=== PATIENT | male | born 1950 | race African-American/Black ===

== ENCOUNTER 2018-05-08 23:38 | Observation (INO) | END 2018-05-11 13:05 | disposition left against medical advice (07) ==

== ENCOUNTER 2019-04-06 18:44 | Inpatient (IN) | payer MEDICARE, OTHER ==
[~2019-04-06] VITALS: Ht 193 cm; Wt 79.8 kg
[~2019-04-06 18:44] MED LIST: ASPI-831 PO; ATOR40TA68 PO; CARV25TA79 PO; DOCU250C58 PO; FURO-109 PO; HYDR-3672 PO; ISOS120T PO; SITA100T11 PO
--- NOTE | 2019-04-06 18:49 | ERD ---
ER Documentation Chief Complaint Chief Complaint ALOC HPI The patient is a 68-year-old male, presenting to the ER because of altered level consciousness for unknown duration. He came from [facility], was treated immediately with Narcan intranasally unknown dosage and he responded spontaneously. He yawning but able to answer question appropriately, denies suicidal/homicidal ideation, denies headache, neck pain, chest pain, dyspnea, abdominal pain, vomiting, dysuria, diarrhea. He does take methadone for history of heroin abuse, smokes marijuana Past medical history: Dyslipidemia, diabetes mellitus, hypertension, epilepsy, history of TIA, COPD, CAD, history of CHF, leukemia on oral chemotherapy, cardiomyopathy Past surgical history: Mitral valve prolapse, ventral herniorrhaphy ROS All systems reviewed and are negative except as per history of present illness. Medications Home Meds Reported Medications Atorvastatin* (Atorvastatin*) 40 Mg Tablet, 40 MG PO QHS, #30 TAB 05/08/18 Sitagliptin* (Januvia*) 100 Mg Tablet, 100 MG PO DAILY 01/18/14 Docusate Sodium* (Colace*) 250 Mg Capsule, 250 MG PO DAILY 01/18/14 Furosemide* (Lasix*) 40 Mg Tablet, 40 MG PO DAILY 01/18/14 Hydralazine Hcl* (Hydralazine Hcl*) 50 Mg Tab, 50 MG PO BID 01/18/14 Isosorbide Mononitrate* (Imdur*) 120 Mg Tab.sr.24h, 120 MG PO DAILY 01/18/14 Carvedilol* (Carvedilol*) 25 Mg Tablet, 25 MG PO BID 01/18/14 Aspirin (Aspirin) 81 Mg Chew, 81 MG PO DAILY 01/18/14 Allergies Allergies: Coded Allergies: benazepril (Unverified Allergy, Unknown, 05/08/18) PMhx/Soc History of Surgery: Yes (hernia repair) Anesthesia Reaction: No Hx Neurological Disorder: Yes (seizure, TIA) Hx Respiratory Disorders: Yes (COPD ) Hx Cardiac Disorders: Yes (PA x2 2005, CHF, CAD) Hx Psychiatric Problems: Yes (anxiety) Hx Miscellaneous Medical Probl: Yes (CAD, PA, COPD, CHF, TIA , DM , LEUKEMIA ON ORAL CHEMO.) Hx Alcohol Use: Yes Hx Substance Use: Yes (marijuana) Hx Tobacco Use: Yes Physical Exam Vitals Vital Signs Date Temp Pulse Resp B/P (MAP) Pulse Ox O2 O2 Flow FiO2 Time Delivery Rate 04/06/19 100 20 102/82 100 Room Air 20:51 (89) 04/06/19 98.6 99 18 100 18:46 Physical Exam Const: No acute distress. Head: Atraumatic. Eyes: Normal Conjunctiva. ENT: Normal External Ears, Nose and Mouth. Neck: Full range of motion. No meningismus. Resp: Clear to auscultation bilaterally. Cardio: Regular rate tachycardic Abd: Soft, non distended, normal bowel sounds, non tender. Skin: No petechiae or rashes. Back: No midline or flank tenderness. Ext: No cyanosis, or edema. Neur: Awake and alert. No focal deficit Psych: Normal Mood and Affect. Result Diagram: 04/06/19191104/06/191911 Results 24 hrs Laboratory Tests Test 04/06/19 19:12 04/06/19 21:20 04/06/19 21:30 White Blood Count 3.3 10^3/ul Red Blood Count 3.29 10^6/ul Hemoglobin 10.0 g/dl Hematocrit 33.7 % Mean Corpuscular Volume 102.4 fl Mean Corpuscular Hemoglobin 30.4 pg Mean Corpuscular 29.7 g/dl Hemoglobin Concent Red Cell Distribution Width 16.6 % Platelet Count 98 10^3/UL Mean Platelet Volume 11.3 fl Immature Granulocytes % 0.600 % Neutrophils % % Segmented Neutrophils % (Manual) 53 % Band Neutrophils % (Manual) 1 % Lymphocytes % % Lymphocytes % (Manual) 28 % Monocytes % % Monocytes % (Manual) 13 % Eosinophils % % Eosinophils % (Manual) 5 % Basophils % % Nucleated Red Blood Cells % 4 % Immature Granulocytes # 0.020 10^3/ul Neutrophils # 10^3/ul Neutrophils # (Manual) 1.7 10^3/ul Band Neutrophils # 0.0 10^3/ul Lymphocytes (Manual) 0.9 10^3/ul Lymphocytes # 10^3/ul Monocytes # 10^3/ul Monocytes # (Manual) 0.4 10^3/ul Eosinophils # 10^3/ul Basophils # 10^3/ul Nucleated Red Blood Cells # 10^3/ul Platelet Estimate DECREASED Polychromasia 2+ Poikilocytosis 1+ Anisocytosis 1+ Ovalocytes 1+ Sodium Level 141 mmol/L Potassium Level 4.9 mmol/L Chloride Level 103 mmol/L Carbon Dioxide Level 28 mmol/L Anion Gap 10 Blood Urea Nitrogen 35 mg/dl Creatinine 2.14 mg/dl Est Glomerular Filtrat 37 mL/min Rate mL/min Glucose Level 105 mg/dl Calcium Level 9.3 mg/dl Total Bilirubin 0.4 mg/dl Direct Bilirubin 0.00 mg/dl Indirect Bilirubin 0.4 mg/dl Aspartate Amino Transf (AST/SGOT) 25 IU/L Alanine 17 IU/L Aminotransferase (ALT/SGPT) Alkaline Phosphatase 74 IU/L Troponin I 0.020 ng/ml Total Protein 8.2 g/dl Albumin 4.0 g/dl Globulin 4.20 g/dl Albumin/Globulin Ratio 0.95 Salicylates Level < 1.0 mg/dl Acetaminophen Level < 10.0 ug/ml Ethyl Alcohol Level < 10.0 mg/dl Urine Color YELLOW Urine Clarity CLEAR Urine pH 6.0 Urine Specific [place] 1.013 Urine Ketones NEGATIVE mg/dL Urine Nitrite NEGATIVE mg/dL Urine Bilirubin NEGATIVE mg/dL Urine Urobilinogen 1+ mg/dL Urine Leukocyte Esterase 1+ Kezia/ul Urine Microscopic RBC 2 /HPF Urine Microscopic WBC 13 /HPF Urine Hemoglobin NEGATIVE mg/dL Urine Glucose NEGATIVE mg/dL Urine Total Protein NEGATIVE mg/dl Urine Opiates Screen Positive Urine Barbiturates Negative Urine Amphetamines Screen Negative Urine Benzodiazepines Screen Negative Urine Cocaine Screen Positive Urine Cannabinoids Negative Free Thyroxine 1.20 ng/dl Current Medications Medications Dose Sig/Alfredo Start Time Status Last (Trade) Ordered Route PRN Stop Time Admin Dose Reason Admin Sodium 500 ml @ Q1H ONCE 04/06/19 DC 04/06/19 Chloride 500 mls/hr IV 19:30 04/06/19 19:53 20:29 Procedures/MDM [place] [id number] Radiology Main Line: [phone] DIAGNOSTIC IMAGING REPORT Patient: WARREN OH : 1950 Age: 68 Sex: M MR #: [id number] DOS: 04/06/191909 Ordering MD: TYE CRAIG MD Location: E/R Room/Bed: PROCEDURE: XR Chest 1 view. CLINICAL INDICATION: Shortness of breath. Altered level of consciousness. TECHNIQUE: Single view of the chest was obtained. COMPARISON: CR CHEST 01/18/2014 FINDINGS: Support lines and tubes: None. Mediastinum: Enlarged heart. Calcified atherosclerosis in the aorta. Lungs: Central pulmonary vascular congestion and interstitial prominence in both lungs. Atelectasis versus mild infiltrates in the perihilar lower lobes. No pneumothorax. Osseous structures: Intact. Osteopenia. Degenerative changes in the shoulders. Other: None. IMPRESSION: Cardiomegaly with calcified atherosclerosis in the aorta. Mild central pulmonary vascular congestion and interstitial prominence in both lungs. Atelectasis versus mild infiltrates in the perihilar lower lobes. RPTAT: AA .Chris Bhagat MD, MD Date Time Electronically viewed and signed by .Chris Bhagat MD, on 04/06/2019 20:04 .P/ CC: TYE CRAIG MD [id number] EK hrs. read by emergency physician Rate/Rhythm: Atrial flutter at 116 beats/min QRS, ST, T-waves: No ST elevation, no T inversion, variable AVB, inferolateral ST/T abn Impression: Abnormal EKG EK hrs. read by emergency physician Rate/Rhythm: Atrial flutter at 102 beats/min QRS, ST, T-waves: No ST elevation, no T inversion, variable AVB, LAD Impression: Abnormal EKG MEDICAL MAKING DECISION: The patient is a 68-year-old male, presenting with acute accidental overdose, acute new onset atrial flutter, acute cystitis, cocaine abuse, pancytopenia. He was treated with 500 mm normal saline upon arrival to the ER for clinical dehydration, urine culture was requested, he was treated with Rocephin 1 g IV for acute cystitis The differential diagnoses considered include but are not limited to substance abuse, metabolic encephalopathy, cystitis, pyelonephritis, electrolyte imbalance, arrhythmia Departure Diagnosis: Primary Impression: Opioid overdose Additional Impressions: New onset atrial flutter UTI (urinary tract infection) Cocaine abuse Pancytopenia Condition: Stable Comments I discussed the findings with the patient. I discussed the patient with Dr Ulises carpio , who was made aware of the lab, the treatment, the patient condition. The patient is admitted to [facility] Disclaimer: Inadvertent spelling and grammatical errors are likely due to EHR/dictation software use and do not reflect on the overall quality of patient care. Also, please note that the electronic time recorded on this note does not necessarily reflect the actual time of the patient encounter. TYE CRAIG MD Apr 06, 2019 18:49
[2019-04-06] MEDS ORDERED: SOD CHLORIDE 0.9% 500 ML IV ONE (19:30)
[2019-04-06] MEDS ORDERED: CEFTRIAXONE 1 GM/50 ML (PMX) 50 ML IVPB ONE (23:00)
[2019-04-06] MEDS ORDERED: ACETAMINOPHEN 325 MG TAB PO PRN (23:30)
[2019-04-06] MEDS ORDERED: MAGNESIUM HYDROXIDE 30ML CUP PO PRN (23:30)
[2019-04-06] MEDS ORDERED: hydrALAzine 20 MG INJ IV PRN (23:30)
[2019-04-06] MEDS ORDERED: ALBUTEROL/IPRATROPIUM (NEB) 3 ML AMP HHN PRN (23:30)
[2019-04-06] MEDS ORDERED: NITROGLYCERIN (SL) 0.4 MG TAB SL PRN (23:30)
[2019-04-06] MEDS ORDERED: DOCUSATE SODIUM 100 MG CAP PO PRN (23:30)
[2019-04-06] MEDS ORDERED: morphine 2 MG INJ IV PRN (23:30)
[2019-04-06] MEDS ORDERED: NACL 0.9% 3 ML SYG IV SCH (23:30)
[2019-04-06] MEDS ORDERED: LORAZEPAM 2 MG INJ IV PRN (23:30)
[2019-04-06] MEDS ORDERED: ONDANSETRON 4 MG INJ IV PRN (23:30)
[2019-04-06] MEDS ORDERED: HYDROCODONE/APAP (5/325) TAB PO PRN (23:30)
[2019-04-07] VITALS (14 sets, daily range): BP systolic 93–155; BP diastolic 62–72; PULSE 57–74; RESP 18–20; Ht 193 cm; Wt 79.8 kg
[2019-04-07] MEDS ORDERED: DEXTROSE 50% 50 ML SYRINGE IV PRN ×2 (01:00)
[2019-04-07] MEDS ORDERED: GLUCOSE GEL 15 GRAM TUBE PO PRN ×2 (01:00)
[2019-04-07] MEDS ORDERED: GLUCOSE GEL 15 GRAM TUBE BUCCAL PRN (01:00)
[2019-04-07] MEDS: INSULIN ASPART [NOVOLOG] 3 ML PEN SC SCH ×6 (01:00→21:00)
[2019-04-07] MEDS ORDERED: GLUCAGON 1 MG INJ IM PRN (01:00)
[2019-04-07] MEDS ORDERED: ACCU-CHEK XX SCH (02:00)
[2019-04-07] MEDS ORDERED: PANT40TA4 PO (02:54)
[2019-04-07] MEDS ORDERED: HYDR-3671 PO (02:54)
[2019-04-07] MEDS ORDERED: ALPR1TAB7 PO (02:54)
[2019-04-07] MEDS ORDERED: CALC0.5C10 PO (02:54)
[2019-04-07] MEDS ORDERED: LEVE500T8 PO (02:54)
[2019-04-07] MEDS ORDERED: TRAZ-149 PO (02:54)
[2019-04-07] MEDS ORDERED: TAMS-14 PO (02:54)
--- NOTE | 2019-04-07 03:13 | HP ---
Date/Time of Note Date/Time of Note DATE: 04/07/19 TIME: 03:12 Assessment/Plan VTE Prophylaxis SCD applied (from Nsg): No SCD contraindicated: other Pharmacological prophylaxis: heparin Lines/Catheters IV Catheter Type (from Nrsg): Peripheral IV Assessment/Plan Hospital Course Assessment and plan: 68-year-old male past medical history of IV drug abuse, hypertension, COPD, leukemia, cardiomyopathy ejection fraction 45%, type 2 diabetes, high cholesterol, CAD who presents with altered level consciousness l ikely secondary to a combination of methadone and cocaine use, also positive UTI and A. fib a flutter rate controlled. 1. Altered level conscious: Again symptoms likely secondary to methadone use an d cocaine use, patient did respond to Narcan. -Monitor for signs of withdrawal -Avoid beta-blockers for now, follow-up TSH A1c lipid panel -Get PT and OT consults 2. Type 2 diabetes: Follow-up A1c, continue sliding scale insulin 3. History of leukemia: Monitor for now, apparently patient was on chemotherapy prior 4. COPD: No present issues DuoNebs as needed 5. High cholesterol: Continue statin, follow-up panel 6. CAD: Again continue p.o. hydralazine, p.o. Lasix 7. UTI: Follow-up lipid panel, continue antibiotics 8. A. fib a flutter: Monitor for now, consider cardiology consult if worsens 9. CKD: Monitor urine output, if worsens consider renal consult Result Diagram: 04/06/19191104/06/191911 Results 24hrs Laboratory Tests Test 04/06/19 19:12 04/06/19 21:20 04/06/19 21:30 04/07/19 01:21 White Blood Count 3.3 #L Red Blood Count 3.29 L Hemoglobin 10.0 L Hematocrit 33.7 L Mean Corpuscular Volume 102.4 H Mean Corpuscular 30.4 Hemoglobin Mean Corpuscular 29.7 L Hemoglobin Concent Red Cell Distribution 16.6 #H Width Platelet Count 98 #L Mean Platelet Volume 11.3 H Immature Granulocytes % 0.600 H Neutrophils % Segmented Neutrophils 53 % (Manual) Band Neutrophils % 1 (Manual) Lymphocytes % Lymphocytes % (Manual) 28 Monocytes % Monocytes % (Manual) 13 H Eosinophils % Eosinophils % (Manual) 5 Basophils % Nucleated Red Blood 4 H Cells % Immature Granulocytes # 0.020 Neutrophils # Neutrophils # (Manual) 1.7 Band Neutrophils # 0.0 Lymphocytes (Manual) 0.9 Lymphocytes # Monocytes # Monocytes # (Manual) 0.4 Eosinophils # Basophils # Nucleated Red Blood Cells # Platelet Estimate DECREASED Polychromasia 2+ Poikilocytosis 1+ Anisocytosis 1+ Ovalocytes 1+ Sodium Level 141 Potassium Level 4.9 Chloride Level 103 Carbon Dioxide Level 28 Anion Gap 10 Blood Urea Nitrogen 35 H Creatinine 2.14 H Est Glomerular Filtrat 37 L Rate mL/min Glucose Level 105 Calcium Level 9.3 Total Bilirubin 0.4 Direct Bilirubin 0.00 Indirect Bilirubin 0.4 Aspartate Amino 25 Transf (AST/SGOT) Alanine 17 Aminotransferase (ALT/SG PT) Alkaline Phosphatase 74 Troponin I 0.020 Total Protein 8.2 H Albumin 4.0 Globulin 4.20 H Albumin/Globulin Ratio 0.95 Salicylates Level < 1.0 L Acetaminophen Level < 10.0 L Ethyl Alcohol Level < 10.0 H Urine Color YELLOW Urine Clarity CLEAR Urine pH 6.0 Urine Specific [place] 1.013 Urine Ketones NEGATIVE Urine Nitrite NEGATIVE Urine Bilirubin NEGATIVE Urine Urobilinogen 1+ H Urine Leukocyte Esterase 1+ H Urine Microscopic RBC 2 Urine Microscopic WBC 13 H Urine Hemoglobin NEGATIVE Urine Glucose NEGATIVE Urine Total Protein NEGATIVE Urine Opiates Screen Positive Urine Barbiturates Negative Urine Amphetamines Negative Screen Urine Benzodiazepines Negative Screen Urine Cocaine Screen Positive Urine Cannabinoids Negative Free Thyroxine 1.20 Bedside Glucose 107 HPI/ROS Admit Date/Time Admit Date/Time Apr 06, 2019 at 22:44 Hx of Present Illness 68-year-old male past medical history of IV drug abuse, hypertension, COPD, leukemia, cardiomyopathy ejection fraction 45%, type 2 diabetes, high cholesterol, CAD who presents with altered level consciousness. Patient came from residential he came from [facility] earlier after it was thought he may have taken too much methadone there. In the ER patient was treated immediately with Narcan and he responded spontaneously. Patient denies suicidal/homicidal ideation, as well as denies headache, neck pain, chest pain, dyspnea, abdominal pain, vomiting, dysuria, diarrhea. He does take methadone for history of heroin abuse, smokes marijuana. When he came in today he was also found with a slightly positive UA signs of UTI, and his U tox is positive for cocaine. He also had signs of A. fib and a flutter in the ER rate controlled today. PMH/Family/Social Past Medical History Medications Current Medications IV Flush (NS 3 ml) 3 ml PER PROTOCOL IV ; Start 04/06/19 at 23:30 Ondansetron HCl (Zofran Inj) 4 mg Q6H PRN IV NAUSEA/VOMITING; Start 04/06/19 at 23:30 Acetaminophen (Tylenol Tab) 650 mg Q6H PRN PO .PAIN 1-3 OR TEMP; Start 04/06/19 at 23:30 Acetaminophen/ Hydrocodone Bitart ([place] (5/325)) 1 tab Q6H PRN PO .MOD PAIN 4- 6; Start 04/06/19 at 23:30 Morphine Sulfate (morphine) 2 mg Q4H PRN IV .SEVERE PAIN 7-10; Start 04/06/19 at 23:30 Docusate Sodium (Colace) 100 mg Q12H PRN PO .CONSTIPATION; Start 04/06/19 at 23:30 Magnesium Hydroxide (Milk Of Mag) 30 ml DAILY PRN PO .CONSTIPATION; Start 04/06/19 at 23:30 Heparin Sodium (Porcine) (Heparin (5000 Units/1ml)) 5,000 unit Q12 SC ; Start 04/07/19 at 09:00 Lorazepam (Ativan) 0.5 mg Q6H PRN IV ANXIETY; Start 04/06/19 at 23:30 Albuterol/ Ipratropium (Duoneb) 3 ml Q4H RESP THERAPY PRN HHN SHORTNESS OF BREATH; Start 04/06/19 at 23:30 Levofloxacin/ Dextrose 150 ml @ 100 mls/hr Q48H IVPB ; Start 04/07/19 at 06:00 Hydralazine HCl (Apresoline) 10 mg Q6H PRN IV ELEVATED BLOOD PRESSURE; Start 04/06/19 at 23:30 Nitroglycerin (Nitroglycerin (Sl Tab) 0.4 Mg) 1 tab Q5M PRN SL ANGINA; Start 04/06/19 at 23:30 Aspirin (Aspirin) 81 mg DAILY PO ; Start 04/07/19 at 09:00 Atorvastatin Calcium (Lipitor) 40 mg QHS PO ; Start 04/07/19 at 21:00 Carvedilol (Coreg) 25 mg BID PO ; Start 04/07/19 at 09:00 Docusate Sodium (Colace) 250 mg DAILY PO ; Start 04/07/19 at 09:00 Furosemide (Lasix) 40 mg DAILY PO ; Start 04/07/19 at 09:00 Hydralazine HCl (Apresoline) 50 mg BID PO ; Start 04/07/19 at 09:00 Isosorbide Mononitrate (Imdur) 120 mg DAILY PO ; Start 04/07/19 at 09:00 Insulin Aspart (Novolog Insulin Pen) NOVOLOG *MILD* ALGORI... Q4 SC ; Start 04/07/19 at 01:00 Miscellaneous Information 1 ea NOTE XX ; Start 04/07/19 at 01:00 Glucose (Glutose) 15 gm Q15M PRN PO DECREASED GLUCOSE; Start 04/07/19 at 01:00 Glucose (Glutose) 22.5 gm Q15M PRN PO DECREASED GLUCOSE; Start 04/07/19 at 01:00 Dextrose (D50w Syringe) 25 ml Q15M PRN IV DECREASED GLUCOSE; Start 04/07/19 at 01:00 Dextrose (D50w Syringe) 50 ml Q15M PRN IV DECREASED GLUCOSE; Start 04/07/19 at 01:00 Glucagon (Glucagen) 1 mg Q15M PRN IM DECREASED GLUCOSE; Start 04/07/19 at 01:00 Glucose (Glutose) 15 gm Q15M PRN BUCCAL DECREASED GLUCOSE; Start 04/07/19 at 01:00 Coded Allergies: benazepril (Unverified Allergy, Unknown, 05/08/18) Past Surgical History Past Surgical Hx: other Family History Significant Family History: no pertinent family hx Social History Alcohol Use: occasionally Smoking Status: Current every day smoker Drug Use: cocaine, marijuana Exam/Review of Systems Vital Signs Vitals Vital Signs Date Temp Pulse Resp B/P (MAP) Pulse Ox O2 O2 Flow FiO2 Time Delivery Rate 04/07/19 Nasal 2.0 00:45 Cannula 04/07/19 98.4 63 20 93/72 (79) 95 00:38 Intake and Output 04/06/19 04/06/19 04/07/19 1515:00 23:00 07:00 IntakeIntake Total 500 ml BalanceBalance 500 ml Exam Exam Gen: Lying in bed, no acute distress Head: Atraumatic. Eyes: Normal Conjunctiva. ENT: Normal External Ears, Nose and Mouth. Neck: Full range of motion. No meningismus. Resp: Clear to auscultation bilaterally. Cardio: Regular rate and rhythm. Abd: Soft, ND, normal bowel sounds, non tender. Ext: No lower exam edema bilaterally Neuro: No focal deficits MAL MADDEN Apr 07, 2019 03:13
[2019-04-07] MEDS ORDERED: LEVOFLOXACIN 750MG/D5W (PMX) 150 ML IVPB SCH (06:00)
[2019-04-07] MEDS ORDERED: ASPIRIN 81 MG TAB PO SCH (09:00)
[2019-04-07] MEDS: ISOSORBIDE MONONITRATE(SR)60 MG TAB PO SCH (09:00)
[2019-04-07] MEDS ORDERED: HEPARIN 5,000 UNIT/1 ML VIAL SC SCH (09:00)
[2019-04-07] MEDS: DOCUSATE SODIUM 250 MG CAP PO SCH (09:10)
[2019-04-07] MEDS: FUROSEMIDE 40 MG TAB PO SCH (09:11)
--- NOTE | 2019-04-07 11:42 | PN ---
Date/Time of Note Date/Time of Note DATE: 04/07/19 TIME: 11:40 Assessment/Plan VTE Prophylaxis Risk score (from Ns)>0 risk: 6 SCD applied (from Ns): Yes Pharmacological prophylaxis: NA/contraindicated Pharm contraindication: thrombocytopenia, anticoag not tolerated Lines/Catheters IV C[facility]from [facility] Peripheral IV Assessment/Plan Hospital Course SUBJECTIVE: Patient awake, no acute distress. OBJECTIVE: Vital signs-see below PHYSICAL EXAM: Constitutional: Adequately built AA male,not in acute distress. HEENT: Head atraumatic and normocephalic. Eyes: Extraocular muscles intact. Anicteric sclerae. Pupils equal bilaterally, reactive to light. NECK: Supple without lymph node. CHEST: Clear and good breath sounds equally. No wheezing. No rhonchi. HEART: S1, S2. Regular rate and rhythm. ABDOMEN: Soft/non tender with no rebound tenderness. Bowel sounds were present. EXTREMITIES: No cyanosis, clubbing or edema. NEUROLOGIC: Alert and oriented x3. No focal deficit. No sensory deficit. PSYCHOSOCIAL: No signs of depression. INTEGUMENTARY: No open wounds. ASSESSMENT AND PLAN:68 yo m W/ hx IVDU,cm,dm2,dlp,ckd,htn,CHF,CM,MR here from SNF 2/2 ALOC, found to have coccaine detected in his urine,and paroxysmal A- Fib.. Acute Encephalopathy, likely toxic /drug-induced -Resolved w/ Narcan -Go ahead and obtain a CT brain to make sure were not dealing with a acute intracranial event... -counselled on cessation of substances. Paroxysmal atrial fibrillation -Now in sinus rhythm -Normal thyroid studies. -No BB 2/2 cocaine utox +, cont. aspirin. Will request cardiology consultation -Keep K above 4, mag above 2.0 Chronic congestive heart failure -compensated -Follow-up 2D echocardiogram -Continue nitrates. Not a candidate for beta-pro secondary to cocaine abuse Chronic anemia -Patient has microcytic indicis. Go ahead and obtain folate/B12 level. CKD -His renal function is stable at baseline History of diabetes -Patient now does not have diabetes. CAD -Continue BB/statin/aspirin/nitrates History of leukemia -Monitor CBC, currently stable. Pancytopenia -Stable. Platelet counts remains relatively stable at baseline as such we will continue aspirin. DVT prophylaxis: SCDs Disposition: Start diet. Monitor patient in telemetry for next 24 hours. If no further neurological changes, DC planning back to custodial in a.m. Patient was seen in collaboration with Dr. Salgado. Result Diagram: 04/07/19 0505 04/07/19 0505 Results 24hrs Laboratory Tests Test 04/06/19 19:12 04/06/19 21:20 04/06/19 21:30 04/07/19 01:21 White Blood Count 3.3 #L Red Blood Count 3.29 L Hemoglobin 10.0 L Hematocrit 33.7 L Mean Corpuscular 102.4 H Volume Mean Corpuscular 30.4 Hemoglobin Mean Corpuscular 29.7 L Hemoglobin Concent Red Cell 16.6 #H Distribution Width Platelet Count 98 #L Mean Platelet 11.3 H Volume Immature 0.600 H Granulocytes % Neutrophils % Segmented 53 Neutrophils % (Manual) Band Neutrophils % 1 (Manual) Lymphocytes % Lymphocytes % 28 (Manual) Monocytes % Monocytes % 13 H (Manual) Eosinophils % Eosinophils % 5 (Manual) Basophils % Nucleated Red 4 H Blood Cells % Immature 0.020 Granulocytes # Neutrophils # Neutrophils # 1.7 (Manual) Band Neutrophils # 0.0 Lymphocytes 0.9 (Manual) Lymphocytes # Monocytes # Monocytes # 0.4 (Manual) Eosinophils # Basophils # Nucleated Red Blood Cells # Platelet Estimate DECREASED Polychromasia 2+ Poikilocytosis 1+ Anisocytosis 1+ Ovalocytes 1+ Sodium Level 141 Potassium Level 4.9 Chloride Level 103 Carbon Dioxide 28 Level Anion Gap 10 Blood Urea 35 H Nitrogen Creatinine 2.14 H Est Glomerular 37 L Filtrat Rate mL/min Glucose Level 105 Calcium Level 9.3 Total Bilirubin 0.4 Direct Bilirubin 0.00 Indirect Bilirubin 0.4 Aspartate Amino 25 Transf (AST/SGOT) Alanine 17 Aminotransferase ( ALT/SGPT) Alkaline 74 Phosphatase Troponin I 0.020 Total Protein 8.2 H Albumin 4.0 Globulin 4.20 H Albumin/Globulin 0.95 Ratio Salicylates Level < 1.0 L Acetaminophen < 10.0 L Level Ethyl Alcohol < 10.0 H Level Urine Color YELLOW Urine Clarity CLEAR Urine pH 6.0 Urine Specific 1.013 [place] Urine Ketones NEGATIVE Urine Nitrite NEGATIVE Urine Bilirubin NEGATIVE Urine Urobilinogen 1+ H Urine Leukocyte 1+ H Esterase Urine Microscopic 2 RBC Urine Microscopic 13 H WBC Urine Hemoglobin NEGATIVE Urine Glucose NEGATIVE Urine Total NEGATIVE Protein Urine Opiates Positive Screen Urine Barbiturates Negative Urine Amphetamines Negative Screen Urine Negative Benzodiazepines Screen Urine Cocaine Positive Screen Urine Cannabinoids Negative Free Thyroxine 1.20 Bedside Glucose 107 Test 04/07/19 05:05 04/07/19 05:06 04/07/19 05:09 04/07/19 09:13 White Blood Count 2.5 #L Red Blood Count 2.89 L Hemoglobin 8.8 L Hematocrit 29.3 L Mean Corpuscular 101.4 H Volume Mean Corpuscular 30.4 Hemoglobin Mean Corpuscular 30.0 L Hemoglobin Concent Red Cell 16.6 H Distribution Width Platelet Count 94 L Mean Platelet 11.6 H Volume Immature 0.400 Granulocytes % Neutrophils % 47.6 Lymphocytes % 28.2 Monocytes % 13.7 H Eosinophils % 9.3 H Basophils % 0.8 Nucleated Red 0.8 H Blood Cells % Immature 0.010 Granulocytes # Neutrophils # 1.2 L Lymphocytes # 0.7 L Monocytes # 0.3 Eosinophils # 0.2 Basophils # 0.0 Nucleated Red 0.0 Blood Cells # Sodium Level 140 Potassium Level 4.4 Chloride Level 106 Carbon Dioxide 27 Level Anion Gap 7 Blood Urea 31 H Nitrogen Creatinine 1.74 H Est Glomerular 48 L Filtrat Rate mL/min Glucose Level 84 Hemoglobin A1c 5.1 Calcium Level 8.6 Phosphorus Level 3.8 Magnesium Level 2.0 Triglycerides 43 Level Cholesterol Level 84 L LDL Cholesterol, 37 Calculated HDL Cholesterol 38 Cholesterol/HDL 2.2 Ratio Thyroid 1.540 Stimulating Hormone (TSH) Bedside Glucose 95 92 Test 04/07/19 10:26 04/07/19 11:21 Blood Gas Specimen Blood arterial Source Arterial Blood 04/07/2019 10:48:08 Date Drawn AM Arterial Blood pH 7.370 (Temp corrected) Arterial Blood 51.0 H pCO2 (Temp correct) Arterial Blood pO2 81.3 (Temp corrected) Arterial Blood 28.8 H HCO3 Arterial Blood 2.8 Base Excess Arterial Blood 94.8 L Oxygen Saturation David Test ACCEPTAB Arterial Blood Gas Left Radial Puncture Site Arterial 1.9 Blood Carboxyhemog lobin Arterial Blood 0 Methemoglobin Blood Gas A-a O2 50.9 H Differential Oxyhemoglobin 93.0 Percent Blood Gas 37.0 Temperature Blood Gas Modality NASAL CANNULA FiO2 27.0 Blood Gas Notified TM Whom Blood Gas Notified 04/07/2019 11:00:46 Time AM Bedside Glucose 102 Exam/Review of Systems Exam Vitals Vital Signs Date Temp Pulse Resp B/P (MAP) Pulse Ox O2 O2 Flow FiO2 Time Delivery Rate 04/07/19 60 08:00 04/07/19 Nasal 2.0 07:55 Cannula 04/07/19 98.0 20 94/62 (73) 100 07:23 Intake and Output 04/06/19 04/06/19 04/07/19 1515:00 23:00 07:00 IntakeIntake Total 500 ml BalanceBalance 500 ml Results Results 24hrs Laboratory Tests Test 04/06/19 19:12 04/06/19 21:20 04/06/19 21:30 04/07/19 01:21 White Blood Count 3.3 #L Red Blood Count 3.29 L Hemoglobin 10.0 L Hematocrit 33.7 L Mean Corpuscular 102.4 H Volume Mean Corpuscular 30.4 Hemoglobin Mean Corpuscular 29.7 L Hemoglobin Concent Red Cell 16.6 #H Distribution Width Platelet Count 98 #L Mean Platelet 11.3 H Volume Immature 0.600 H Granulocytes % Neutrophils % Segmented 53 Neutrophils % (Manual) Band Neutrophils % 1 (Manual) Lymphocytes % Lymphocytes % 28 (Manual) Monocytes % Monocytes % 13 H (Manual) Eosinophils % Eosinophils % 5 (Manual) Basophils % Nucleated Red 4 H Blood Cells % Immature 0.020 Granulocytes # Neutrophils # Neutrophils # 1.7 (Manual) Band Neutrophils # 0.0 Lymphocytes 0.9 (Manual) Lymphocytes # Monocytes # Monocytes # 0.4 (Manual) Eosinophils # Basophils # Nucleated Red Blood Cells # Platelet Estimate DECREASED Polychromasia 2+ Poikilocytosis 1+ Anisocytosis 1+ Ovalocytes 1+ Sodium Level 141 Potassium Level 4.9 Chloride Level 103 Carbon Dioxide 28 Level Anion Gap 10 Blood Urea 35 H Nitrogen Creatinine 2.14 H Est Glomerular 37 L Filtrat Rate mL/min Glucose Level 105 Calcium Level 9.3 Total Bilirubin 0.4 Direct Bilirubin 0.00 Indirect Bilirubin 0.4 Aspartate Amino 25 Transf (AST/SGOT) Alanine 17 Aminotransferase ( ALT/SGPT) Alkaline 74 Phosphatase Troponin I 0.020 Total Protein 8.2 H Albumin 4.0 Globulin 4.20 H Albumin/Globulin 0.95 Ratio Salicylates Level < 1.0 L Acetaminophen < 10.0 L Level Ethyl Alcohol < 10.0 H Level Urine Color YELLOW Urine Clarity CLEAR Urine pH 6.0 Urine Specific 1.013 [place] Urine Ketones NEGATIVE Urine Nitrite NEGATIVE Urine Bilirubin NEGATIVE Urine Urobilinogen 1+ H Urine Leukocyte 1+ H Esterase Urine Microscopic 2 RBC Urine Microscopic 13 H WBC Urine Hemoglobin NEGATIVE Urine Glucose NEGATIVE Urine Total NEGATIVE Protein Urine Opiates Positive Screen Urine Barbiturates Negative Urine Amphetamines Negative Screen Urine Negative Benzodiazepines Screen Urine Cocaine Positive Screen Urine Cannabinoids Negative Free Thyroxine 1.20 Bedside Glucose 107 Test 04/07/19 05:05 04/07/19 05:06 04/07/19 05:09 04/07/19 09:13 White Blood Count 2.5 #L Red Blood Count 2.89 L Hemoglobin 8.8 L Hematocrit 29.3 L Mean Corpuscular 101.4 H Volume Mean Corpuscular 30.4 Hemoglobin Mean Corpuscular 30.0 L Hemoglobin Concent Red Cell 16.6 H Distribution Width Platelet Count 94 L Mean Platelet 11.6 H Volume Immature 0.400 Granulocytes % Neutrophils % 47.6 Lymphocytes % 28.2 Monocytes % 13.7 H Eosinophils % 9.3 H Basophils % 0.8 Nucleated Red 0.8 H Blood Cells % Immature 0.010 Granulocytes # Neutrophils # 1.2 L Lymphocytes # 0.7 L Monocytes # 0.3 Eosinophils # 0.2 Basophils # 0.0 Nucleated Red 0.0 Blood Cells # Sodium Level 140 Potassium Level 4.4 Chloride Level 106 Carbon Dioxide 27 Level Anion Gap 7 Blood Urea 31 H Nitrogen Creatinine 1.74 H Est Glomerular 48 L Filtrat Rate mL/min Glucose Level 84 Hemoglobin A1c 5.1 Calcium Level 8.6 Phosphorus Level 3.8 Magnesium Level 2.0 Triglycerides 43 Level Cholesterol Level 84 L LDL Cholesterol, 37 Calculated HDL Cholesterol 38 Cholesterol/HDL 2.2 Ratio Thyroid 1.540 Stimulating Hormone (TSH) Bedside Glucose 95 92 Test 04/07/19 10:26 04/07/19 11:21 Blood Gas Specimen Blood arterial Source Arterial Blood 04/07/2019 10:48:08 Date Drawn AM Arterial Blood pH 7.370 (Temp corrected) Arterial Blood 51.0 H pCO2 (Temp correct) Arterial Blood pO2 81.3 (Temp corrected) Arterial Blood 28.8 H HCO3 Arterial Blood 2.8 Base Excess Arterial Blood 94.8 L Oxygen Saturation David Test ACCEPTAB Arterial Blood Gas Left Radial Puncture Site Arterial 1.9 Blood Carboxyhemog lobin Arterial Blood 0 Methemoglobin Blood Gas A-a O2 50.9 H Differential Oxyhemoglobin 93.0 Percent Blood Gas 37.0 Temperature Blood Gas Modality NASAL CANNULA FiO2 27.0 Blood Gas Notified TM Whom Blood Gas Notified 04/07/2019 11:00:46 Time AM Bedside Glucose 102 Medications Medication Current Medications IV Flush (NS 3 ml) 3 ml PER PROTOCOL IV ; Start 04/06/19 at 23:30 Ondansetron HCl (Zofran Inj) 4 mg Q6H PRN IV NAUSEA/VOMITING; Start 04/06/19 at 23:30 Acetaminophen (Tylenol Tab) 650 mg Q6H PRN PO .PAIN 1-3 OR TEMP; Start 04/06/19 at 23:30 Acetaminophen/ Hydrocodone Bitart ([place] (5/325)) 1 tab Q6H PRN PO .MOD PAIN 4- 6; Start 04/06/19 at 23:30 Morphine Sulfate (morphine) 2 mg Q4H PRN IV .SEVERE PAIN 7-10; Start 04/06/19 at 23:30 Docusate Sodium (Colace) 100 mg Q12H PRN PO .CONSTIPATION; Start 04/06/19 at 23:30 Magnesium Hydroxide (Milk Of Mag) 30 ml DAILY PRN PO .CONSTIPATION; Start 04/06/19 at 23:30 Heparin Sodium (Porcine) (Heparin (5000 Units/1ml)) 5,000 unit Q12 SC Last ad ministered on 04/07/19at 09:11; Admin Dose 5,000 UNIT; Start 04/07/19 at 09:00 Lorazepam (Ativan) 0.5 mg Q6H PRN IV ANXIETY; Start 04/06/19 at 23:30 Albuterol/ Ipratropium (Duoneb) 3 ml Q4H RESP THERAPY PRN HHN SHORTNESS OF BREATH; Start 04/06/19 at 23:30 Levofloxacin/ Dextrose 150 ml @ 100 mls/hr Q48H IVPB Last administered on 04/07/19at 05:08; Admin Dose 100 MLS/HR; Start 04/07/19 at 06:00 Hydralazine HCl (Apresoline) 10 mg Q6H PRN IV ELEVATED BLOOD PRESSURE; Start 04/06/19 at 23:30 Nitroglycerin (Nitroglycerin (Sl Tab) 0.4 Mg) 1 tab Q5M PRN SL ANGINA; Start 04/06/19 at 23:30 Aspirin (Aspirin) 81 mg DAILY PO Last administered on 04/07/19at 09:10; Admin Dose 81 MG; Start 04/07/19 at 09:00 Atorvastatin Calcium (Lipitor) 40 mg QHS PO ; Start 04/07/19 at 21:00 Docusate Sodium (Colace) 250 mg DAILY PO Last administered on 04/07/19at 09:10; Admin Dose 250 MG; Start 04/07/19 at 09:00 Furosemide (Lasix) 40 mg DAILY PO Last administered on 04/07/19at 09:11; Admin Dose 40 MG; Start 04/07/19 at 09:00 Hydralazine HCl (Apresoline) 50 mg BID PO ; Start 04/07/19 at 09:00 Isosorbide Mononitrate (Imdur) 120 mg DAILY PO ; Start 04/07/19 at 09:00 Miscellaneous Information 1 ea NOTE XX ; Start 04/07/19 at 01:00 Glucose (Glutose) 15 gm Q15M PRN PO DECREASED GLUCOSE; Start 04/07/19 at 01:00 Glucose (Glutose) 22.5 gm Q15M PRN PO DECREASED GLUCOSE; Start 04/07/19 at 01:00 Dextrose (D50w Syringe) 25 ml Q15M PRN IV DECREASED GLUCOSE; Start 04/07/19 at 01:00 Dextrose (D50w Syringe) 50 ml Q15M PRN IV DECREASED GLUCOSE; Start 04/07/19 at 01:00 Glucagon (Glucagen) 1 mg Q15M PRN IM DECREASED GLUCOSE; Start 04/07/19 at 01:00 Glucose (Glutose) 15 gm Q15M PRN BUCCAL DECREASED GLUCOSE; Start 04/07/19 at 01:00 Insulin Aspart (Novolog Insulin Pen) NOVOLOG *MILD* ALGORI... AC MEALS AND BEDTIME SC ; Start 04/07/19 at 11:30 JOSIE HOLBROOK NP Apr 07, 2019 11:41
--- NOTE | 2019-04-07 14:46 | RADRPT ---
Echocardiogram Report Patient Name: WARREN OHPatient ID: [id number] : 1950 (68y 8m)Study Date: 04/07/2019 10:02:50 AM Gender: Normcession #: [id number] Tech: LE Location: [facility] Ref.Physician: MAL MADDEN Height(Cm): BSA: Weight(Kg): Quality: GoodOrder Physician: MAL MADDEN Account #: Procedures: Echocardiographic Report: Transthoracic echocardiogram with complete 2D, M-Mode, and doppler examination. Indications: Congestive Heart Failure. Measurements: 2D/M Mode Doppler Measurement Value Normal Range Measurement Value Normal Range LVIDd 2D 5.0 [ 4.2 - 5.8 ] cm AV Mean Khadar 0.8 [ 70.0 - 90.0 ] cm/sec LVIDs 2D 4.7 [ 2.5 - 4.0 ] cm AV Mean PG 3.0 [ 2.0 - 4.0 ] mmHg LVPWd 2D 1.3 [ 0.6 - 1.0 ] cm AV Peak Khadar 1.1 [ 100.0 - 170.0 ] cm/sec IVSd 2D 1.3 [ 0.6 - 1.0 ] cm AV Peak PG 5.0 [ 2.0 - 9.0 ] mmHg EF 2D 15.0 [ 52.0 - 72.0 ] percent AV VTI 22.0 cm LVOT Diam 2.1 [ 2.3 - 2.9 ] cm LVOT Peak Khadar 0.8 [ 70.0 - 110.0 ] cm/sec LVOT Peak PG 3.0 [ 2.0 - 6.0 ] mmHg MV E Peak Khadar 1.8 [ 60.0 - 130.0 ] cm/sec MV A Peak Khadar 1.1 [ 100.0 - 120.0 ] cm/sec MV E/A 1.6 [ 0.8 - 1.5 ] ratio MV Peak Khadar 2.0 [ 60.0 - 130.0 ] cm/sec MV Peak PG 16.0 [ 1.0 - 10.0 ] mmHg MV Mean Khadar 1.2 cm/sec MV Mean PG 7.0 mmHg MV Decel Time 496 [ 104 - 258 ] msec Lat E` Khadar 0.0 [ 10.0 - 15.0 ] cm/sec Lateral E/E` 44.0 [ 1.0 - 2.0 ] ratio Med E` Khadar 0.0 cm/sec MV E/A 1.6 [ 0.8 - 1.5 ] ratio MV VTI 65.6 cm TR Peak Khadar 3.6 [ 100.0 - 280.0 ] cm/sec TR Peak PG 52.0 mmHg PV Peak Khadar 0.5 [ 40.0 - 80.0 ] cm/sec PV Peak PG 1.0 mmHg Findings: Left Ventricle: Mild concentric left ventricular hypertrophy. Moderate enlargement of left ventricle cavity. Severe global left ventricular systolic dysfunction. Ejection fraction is visually estimated at 30-35 %. Tissue Doppler/Mitral Doppler indices are consistent with pseudonormalization with mildly elevated left atrial pressure (Stage II diastolic dysfunction). Right Ventricle: Normal right ventricular size. Normal right ventricular systolic function. Left Atrium: There is severe enlargement of left atrium. Right Atrium: There is mild-moderate enlargement of right atrium. Mitral Valve: MitraClip device attached to mitral valve leaflets, likely causing some degree of stenosis. Mild mitral annular calcification. Moderate mitral valve regurgitation. Mitral valve clip visualized. Aortic Valve: Normal appearance of the aortic valve. No significant aortic stenosis or insufficiency. Tricuspid Valve: Normal appearance of the tricuspid valve. Right ventricular systolic pressure is consistent with moderate pulmonary hypertension. The estimated Peak RVSP is 60 mmHg. There is mild to moderate tricuspid regurgitation. Pulmonic Valve: Pulmonic valve not well visualized. Pericardium: Normal pericardium with no significant pericardial effusion. Aorta: Normal aortic root. IVC: Normal size and no respiratory collapse consistent with elevated right atrial pressure. Conclusions: Mild concentric left ventricular hypertrophy. Moderate enlargement of left ventricle cavity. Severe global left ventricular systolic dysfunction. Ejection fraction is visually estimated at 30-35 %. Tissue Doppler/Mitral Doppler indices are consistent with pseudonormalization with mildly elevated left atrial pressure (Stage II diastolic dysfunction). MitraClip device attached to mitral valve leaflets, likely causing some degree of stenosis. Mild mitral annular calcification. Moderate mitral valve regurgitation. There is mild to moderate tricuspid regurgitation. There is severe enlargement of left atrium.There is mild-moderate enlargement of right atrium. Right ventricular systolic pressure is consistent with moderate pulmonary hypertension. The estimated Peak RVSP is 60 mmHg based on RA pressure of 8 mmHg. Electronically Signed By: Braxton Pollack 2019-04-07 14:45:44 PDT
--- NOTE | 2019-04-07 15:46 | CONS ---
Assessment/Plan Assessment/Plan Hospital Course (Demo Recall) Encephalopathy: Due to polysubstance abuse. Resolved with narcan so predominantly opiate effect. Also with cocaine in Utox Paroxysmal afib/flutter on Eliquis: now back in sinus Dilated cardiomyopathy: probably from polysubstance abuse, EF 30% Chronic systolic CHF: ~compensated Severe MR s/p mitraclip 11/2016 at [facility]: residual moderate regurgitation on echo which is not unusual PAD with occluded left carotid per pt CVA without residual CKD -restart Eliquis 5mg BID -d/c ASA -agree with holding coreg with recent cocaine use -if RVR, can start dilatizem though not a good custodial choice -continue imdur/hydralazine -dispo per primary. Ok for d/c from cardiac perspective Consultation Date/Type/Reason Admit Date/Time Apr 06, 2019 at 22:44 Date of Consultation: Apr 07, 2019 Type of Consult Cardiology Reason for Consultation AFib/flutter Requesting Provider: JOSIE HOLBROOK NP Date/Time of Note DATE: 04/07/19 TIME: 15:38 Hx of Present Illness 68 yo M with a h/o dilated cardiomyopathy EF 30%, chronic systolic CHF, paro xysmal afib/flutter on Eliquis, severe MR s/p mitraclip 11/2016 at [facility], PAD with occluded left carotid, CVA without residual, CKD, prior heroin use on methadone, cocaine abuse, who presented from his assisted living facility due to altered mentation. He was given narcan in the ED and regained consciousness. He was also noted to have cocaine in his Utox. He admits to using cocaine 2 days prior but denies heroin. No chest pain or SOB. No orthopnea or edema. He denies h/o CAD. He takes Eliquis but does not know the dose. He has had afib before. On admission he had aflutter/fib with RVR which has since converted to sinus. per hPI Past Medical History per HPI Home Meds Reported Medications Tamsulosin Hcl* (Flomax*) 0.4 Mg Cap.er.24h, 0.4 MG PO QHS for 30 Days, #30 04/07/19 Trazodone Hcl* (Desyrel*) 50 Mg Tab, 50 MG PO QHS for 30 Days, #30 04/07/19 Pantoprazole* (Pantoprazole*) 40 Mg Tablet.dr, 40 MG PO DAILY for 30 Days, #30 04/07/19 Calcitriol* (Calcitriol*) 0.5 Mcg Capsule, 0.5 MG PO DAILY for 30 Days, #30 04/07/19 Hydralazine Hcl* (Hydralazine Hcl*) 25 Mg Tab, 25 MG PO DAILY for 30 Days, #30 04/07/19 Levetiracetam* (Levetiracetam*) 500 Mg Tablet, 500 MG PO DAILY for 30 Days, #30 04/07/19 Alprazolam* (Alprazolam*) 1 Mg Tablet, 1 MG PO QHS for 30 Days, #30 04/07/19 Atorvastatin* (Atorvastatin*) 40 Mg Tablet, 40 MG PO QHS, #30 TAB 05/08/18 Sitagliptin* (Januvia*) 100 Mg Tablet, 100 MG PO DAILY 01/18/14 Docusate Sodium* (Colace*) 250 Mg Capsule, 250 MG PO DAILY 01/18/14 Furosemide* (Lasix*) 40 Mg Tablet, 40 MG PO DAILY 01/18/14 Hydralazine Hcl* (Hydralazine Hcl*) 50 Mg Tab, 50 MG PO BID 01/18/14 Isosorbide Mononitrate* (Imdur*) 120 Mg Tab.sr.24h, 120 MG PO DAILY 01/18/14 Carvedilol* (Carvedilol*) 25 Mg Tablet, 25 MG PO BID 01/18/14 Aspirin (Aspirin) 81 Mg Chew, 81 MG PO DAILY 01/18/14 Medications Current Medications IV Flush (NS 3 ml) 3 ml PER PROTOCOL IV ; Start 04/06/19 at 23:30 Ondansetron HCl (Zofran Inj) 4 mg Q6H PRN IV NAUSEA/VOMITING; Start 04/06/19 at 23:30 Acetaminophen (Tylenol Tab) 650 mg Q6H PRN PO .PAIN 1-3 OR TEMP; Start 04/06/19 at 23:30 Acetaminophen/ Hydrocodone Bitart (Teton (5/325)) 1 tab Q6H PRN PO .MOD PAIN 4- 6; Start 04/06/19 at 23:30 Morphine Sulfate (morphine) 2 mg Q4H PRN IV .SEVERE PAIN 7-10; Start 04/06/19 at 23:30 Docusate Sodium (Colace) 100 mg Q12H PRN PO .CONSTIPATION; Start 04/06/19 at 23:30 Magnesium Hydroxide (Milk Of Mag) 30 ml DAILY PRN PO .CONSTIPATION; Start 04/06/19 at 23:30 Lorazepam (Ativan) 0.5 mg Q6H PRN IV ANXIETY; Start 04/06/19 at 23:30 Albuterol/ Ipratropium (Duoneb) 3 ml Q4H RESP THERAPY PRN HHN SHORTNESS OF BREATH; Start 04/06/19 at 23:30 Levofloxacin/ Dextrose 150 ml @ 100 mls/hr Q48H IVPB Last administered on 04/07/19at 05:08; Admin Dose 100 MLS/HR; Start 04/07/19 at 06:00 Hydralazine HCl (Apresoline) 10 mg Q6H PRN IV ELEVATED BLOOD PRESSURE; Start 04/06/19 at 23:30 Nitroglycerin (Nitroglycerin (Sl Tab) 0.4 Mg) 1 tab Q5M PRN SL ANGINA; Start 04/06/19 at 23:30 Aspirin (Aspirin) 81 mg DAILY PO Last administered on 04/07/19at 09:10; Admin Dose 81 MG; Start 04/07/19 at 09:00 Atorvastatin Calcium (Lipitor) 40 mg QHS PO ; Start 04/07/19 at 21:00 Docusate Sodium (Colace) 250 mg DAILY PO Last administered on 04/07/19at 09:10; Admin Dose 250 MG; Start 04/07/19 at 09:00 Furosemide (Lasix) 40 mg DAILY PO Last administered on 04/07/19at 09:11; Admin Dose 40 MG; Start 04/07/19 at 09:00 Hydralazine HCl (Apresoline) 50 mg BID PO ; Start 04/07/19 at 09:00 Isosorbide Mononitrate (Imdur) 120 mg DAILY PO ; Start 04/07/19 at 09:00 Miscellaneous Information 1 ea NOTE XX ; Start 04/07/19 at 01:00 Glucose (Glutose) 15 gm Q15M PRN PO DECREASED GLUCOSE; Start 04/07/19 at 01:00 Glucose (Glutose) 22.5 gm Q15M PRN PO DECREASED GLUCOSE; Start 04/07/19 at 01:00 Dextrose (D50w Syringe) 25 ml Q15M PRN IV DECREASED GLUCOSE; Start 04/07/19 at 01:00 Dextrose (D50w Syringe) 50 ml Q15M PRN IV DECREASED GLUCOSE; Start 04/07/19 at 01:00 Glucagon (Glucagen) 1 mg Q15M PRN IM DECREASED GLUCOSE; Start 04/07/19 at 01:00 Glucose (Glutose) 15 gm Q15M PRN BUCCAL DECREASED GLUCOSE; Start 04/07/19 at 01:00 Insulin Aspart (Novolog Insulin Pen) NOVOLOG *MILD* ALGORI... AC MEALS AND BEDTIME SC ; Start 04/07/19 at 11:30 Allergies: Coded Allergies: benazepril (Unverified Allergy, Unknown, 05/08/18) Past Surgical History Past Surgical Hx: other Social History Alcohol Use: occasionally Smoking Status: Former smoker Drug Use: cocaine, marijuana Exam/Review of Systems Vital Signs Vitals Vital Signs Date Temp Pulse Resp B/P (MAP) Pulse Ox O2 O2 Flow FiO2 Time Delivery Rate 04/07/19 98.0 62 20 110/62 92 15:31 (78) 04/07/19 Nasal 2.0 07:55 Cannula Intake and Output 04/06/19 04/06/19 04/07/19 1515:00 23:00 07:00 IntakeIntake Total 500 ml BalanceBalance 500 ml Exam Constitutional: alert, oriented Psych: no complaints, nl mood/affect Head: normocephalic, atraumatic Neck: jvd (9cm) Respiratory: diminished breath sounds; No clear to auscultation Cardiovascular: regular rate and rhythm, systolic murmur (2/6 HSM); No edema Gastrointestinal: soft, non-tender; No distended Neurological: nl mental status, nl speech Labs Result Diagram: 04/07/19 0505 04/07/19 0505 Results 24hrs Laboratory Tests Test 04/06/19 19:12 04/06/19 21:20 04/06/19 21:30 04/07/19 01:21 White Blood Count 3.3 #L Red Blood Count 3.29 L Hemoglobin 10.0 L Hematocrit 33.7 L Mean Corpuscular 102.4 H Volume Mean Corpuscular 30.4 Hemoglobin Mean Corpuscular 29.7 L Hemoglobin Concent Red Cell 16.6 #H Distribution Width Platelet Count 98 #L Mean Platelet 11.3 H Volume Immature 0.600 H Granulocytes % Neutrophils % Segmented 53 Neutrophils % (Manual) Band Neutrophils % 1 (Manual) Lymphocytes % Lymphocytes % 28 (Manual) Monocytes % Monocytes % 13 H (Manual) Eosinophils % Eosinophils % 5 (Manual) Basophils % Nucleated Red 4 H Blood Cells % Immature 0.020 Granulocytes # Neutrophils # Neutrophils # 1.7 (Manual) Band Neutrophils # 0.0 Lymphocytes 0.9 (Manual) Lymphocytes # Monocytes # Monocytes # 0.4 (Manual) Eosinophils # Basophils # Nucleated Red Blood Cells # Platelet Estimate DECREASED Polychromasia 2+ Poikilocytosis 1+ Anisocytosis 1+ Ovalocytes 1+ Sodium Level 141 Potassium Level 4.9 Chloride Level 103 Carbon Dioxide 28 Level Anion Gap 10 Blood Urea 35 H Nitrogen Creatinine 2.14 H Est Glomerular 37 L Filtrat Rate mL/min Glucose Level 105 Calcium Level 9.3 Total Bilirubin 0.4 Direct Bilirubin 0.00 Indirect Bilirubin 0.4 Aspartate Amino 25 Transf (AST/SGOT) Alanine 17 Aminotransferase ( ALT/SGPT) Alkaline 74 Phosphatase Troponin I 0.020 Total Protein 8.2 H Albumin 4.0 Globulin 4.20 H Albumin/Globulin 0.95 Ratio Salicylates Level < 1.0 L Acetaminophen < 10.0 L Level Ethyl Alcohol < 10.0 H Level Urine Color YELLOW Urine Clarity CLEAR Urine pH 6.0 Urine Specific 1.013 [place] Urine Ketones NEGATIVE Urine Nitrite NEGATIVE Urine Bilirubin NEGATIVE Urine Urobilinogen 1+ H Urine Leukocyte 1+ H Esterase Urine Microscopic 2 RBC Urine Microscopic 13 H WBC Urine Hemoglobin NEGATIVE Urine Glucose NEGATIVE Urine Total NEGATIVE Protein Urine Opiates Positive Screen Urine Barbiturates Negative Urine Amphetamines Negative Screen Urine Negative Benzodiazepines Screen Urine Cocaine Positive Screen Urine Cannabinoids Negative Free Thyroxine 1.20 Bedside Glucose 107 Test 04/07/19 05:02 04/07/19 05:05 04/07/19 05:06 04/07/19 05:09 Iron Level 32 L Total Iron Binding 292 Capacity Percent Iron 11 L Saturation Ferritin 55.3 Vitamin B12 Level 701 Folate > 20.0 H White Blood Count 2.5 #L Red Blood Count 2.89 L Hemoglobin 8.8 L Hematocrit 29.3 L Mean Corpuscular 101.4 H Volume Mean Corpuscular 30.4 Hemoglobin Mean Corpuscular 30.0 L Hemoglobin Concent Red Cell 16.6 H Distribution Width Platelet Count 94 L Mean Platelet 11.6 H Volume Immature 0.400 Granulocytes % Neutrophils % 47.6 Lymphocytes % 28.2 Monocytes % 13.7 H Eosinophils % 9.3 H Basophils % 0.8 Nucleated Red 0.8 H Blood Cells % Immature 0.010 Granulocytes # Neutrophils # 1.2 L Lymphocytes # 0.7 L Monocytes # 0.3 Eosinophils # 0.2 Basophils # 0.0 Nucleated Red 0.0 Blood Cells # Sodium Level 140 Potassium Level 4.4 Chloride Level 106 Carbon Dioxide 27 Level Anion Gap 7 Blood Urea 31 H Nitrogen Creatinine 1.74 H Est Glomerular 48 L Filtrat Rate mL/min Glucose Level 84 Hemoglobin A1c 5.1 Calcium Level 8.6 Phosphorus Level 3.8 Magnesium Level 2.0 Triglycerides 43 Level Cholesterol Level 84 L LDL Cholesterol, 37 Calculated HDL Cholesterol 38 Cholesterol/HDL 2.2 Ratio Thyroid 1.540 Stimulating Hormone (TSH) Bedside Glucose 95 Test 04/07/19 09:13 04/07/19 10:26 04/07/19 11:21 Bedside Glucose 92 102 Blood Gas Specimen Blood arterial Source Arterial Blood 04/07/2019 10:48:08 Date Drawn AM Arterial Blood pH 7.370 (Temp corrected) Arterial Blood 51.0 H pCO2 (Temp correct) Arterial Blood pO2 81.3 (Temp corrected) Arterial Blood 28.8 H HCO3 Arterial Blood 2.8 Base Excess Arterial Blood 94.8 L Oxygen Saturation David Test ACCEPTAB Arterial Blood Gas Left Radial Puncture Site Arterial 1.9 Blood Carboxyhemog lobin Arterial Blood 0 Methemoglobin Blood Gas A-a O2 50.9 H Differential Oxyhemoglobin 93.0 Percent Blood Gas 37.0 Temperature Blood Gas Modality NASAL CANNULA FiO2 27.0 Blood Gas Notified TM Whom Blood Gas Notified 04/07/2019 11:00:46 Time AM Medications Medications Current Medications IV Flush (NS 3 ml) 3 ml PER PROTOCOL IV ; Start 04/06/19 at 23:30 Ondansetron HCl (Zofran Inj) 4 mg Q6H PRN IV NAUSEA/VOMITING; Start 04/06/19 at 23:30 Acetaminophen (Tylenol Tab) 650 mg Q6H PRN PO .PAIN 1-3 OR TEMP; Start 04/06/19 at 23:30 Acetaminophen/ Hydrocodone Bitart (Teton (5/325)) 1 tab Q6H PRN PO .MOD PAIN 4- 6; Start 04/06/19 at 23:30 Morphine Sulfate (morphine) 2 mg Q4H PRN IV .SEVERE PAIN 7-10; Start 04/06/19 at 23:30 Docusate Sodium (Colace) 100 mg Q12H PRN PO .CONSTIPATION; Start 04/06/19 at 23:30 Magnesium Hydroxide (Milk Of Mag) 30 ml DAILY PRN PO .CONSTIPATION; Start 04/06/19 at 23:30 Lorazepam (Ativan) 0.5 mg Q6H PRN IV ANXIETY; Start 04/06/19 at 23:30 Albuterol/ Ipratropium (Duoneb) 3 ml Q4H RESP THERAPY PRN HHN SHORTNESS OF BREATH; Start 04/06/19 at 23:30 Levofloxacin/ Dextrose 150 ml @ 100 mls/hr Q48H IVPB Last administered on 04/07/19at 05:08; Admin Dose 100 MLS/HR; Start 04/07/19 at 06:00 Hydralazine HCl (Apresoline) 10 mg Q6H PRN IV ELEVATED BLOOD PRESSURE; Start 04/06/19 at 23:30 Nitroglycerin (Nitroglycerin (Sl Tab) 0.4 Mg) 1 tab Q5M PRN SL ANGINA; Start 04/06/19 at 23:30 Aspirin (Aspirin) 81 mg DAILY PO Last administered on 04/07/19at 09:10; Admin Dose 81 MG; Start 04/07/19 at 09:00 Atorvastatin Calcium (Lipitor) 40 mg QHS PO ; Start 04/07/19 at 21:00 Docusate Sodium (Colace) 250 mg DAILY PO Last administered on 04/07/19at 09:10; Admin Dose 250 MG; Start 04/07/19 at 09:00 Furosemide (Lasix) 40 mg DAILY PO Last administered on 04/07/19at 09:11; Admin Dose 40 MG; Start 04/07/19 at 09:00 Hydralazine HCl (Apresoline) 50 mg BID PO ; Start 04/07/19 at 09:00 Isosorbide Mononitrate (Imdur) 120 mg DAILY PO ; Start 04/07/19 at 09:00 Miscellaneous Information 1 ea NOTE XX ; Start 04/07/19 at 01:00 Glucose (Glutose) 15 gm Q15M PRN PO DECREASED GLUCOSE; Start 04/07/19 at 01:00 Glucose (Glutose) 22.5 gm Q15M PRN PO DECREASED GLUCOSE; Start 04/07/19 at 01:00 Dextrose (D50w Syringe) 25 ml Q15M PRN IV DECREASED GLUCOSE; Start 04/07/19 at 01:00 Dextrose (D50w Syringe) 50 ml Q15M PRN IV DECREASED GLUCOSE; Start 04/07/19 at 01:00 Glucagon (Glucagen) 1 mg Q15M PRN IM DECREASED GLUCOSE; Start 04/07/19 at 01:00 Glucose (Glutose) 15 gm Q15M PRN BUCCAL DECREASED GLUCOSE; Start 04/07/19 at 01:00 Insulin Aspart (Novolog Insulin Pen) NOVOLOG *MILD* ALGORI... AC MEALS AND BEDTIME SC ; Start 04/07/19 at 11:30 DENISE NASH Apr 07, 2019 15:45
[2019-04-07] MEDS ORDERED: ATORVASTATIN 40 MG TAB PO SCH (21:00)
[2019-04-07] MEDS: APIXABAN 5 MG TABLET PO SCH (21:19)
[2019-04-08] VITALS (10 sets, daily range): BP systolic 100–138; BP diastolic 54–73; PULSE 52–69; RESP 18–20
[2019-04-08] MEDS: INSULIN ASPART [NOVOLOG] 3 ML PEN SC SCH ×2 (07:00→11:31)
[2019-04-08] MEDS: APIXABAN 5 MG TABLET PO SCH (07:41)
[2019-04-08] MEDS: DOCUSATE SODIUM 250 MG CAP PO SCH (07:42)
[2019-04-08] MEDS: FUROSEMIDE 40 MG TAB PO SCH (07:42)
[2019-04-08] MEDS: ISOSORBIDE MONONITRATE(SR)60 MG TAB PO SCH (07:42)
--- NOTE | 2019-04-08 11:49 | PDOCDIS ---
Discharge Instructions CONDITION [id number] Patient Condition: [id number] Stable HOME CARE INSTRUCTIONS: [id number] Diet Instructions: [id number] Low Fat /Cholesterol FOLLOW UP/APPOINTMENTS Follow-up Plan Follow-up with primary care physician in 1 week. JOSIE HOLBROOK NP Apr 08, 2019 11:49
[2019-04-08] MEDS ORDERED: APIX5TAB PO (11:50)
[2019-04-08] MEDS ORDERED: ALPR1TAB7 PO (11:50)
--- NOTE | 2019-04-08 11:59 | DS ---
Date/Time of Note Date/Time of Note DATE: 04/08/19 TIME: 11:55 Discharge Summary Admission/Discharge Info Admit Date/Time Apr 06, 2019 at 22:44 Discharge Date/Time Discharge Diagnosis Acute Encephalopathy, likely toxic /drug-induced.resolved Paroxysmal atrial fibrillation Chronic systolic congestive heart failure Dilated cardiomyopathy Severe mitral regurgitation with status post mitral clip in 2016 Peripheral arterial disease CVA Chronic anemia CKD History of diabetes CAD History of leukemia Pancytopenia Patient Condition: Stable Consults Procedures 04/06/2019: 2D echocardiogram Conclusions: Mild concentric left ventricular hypertrophy. Moderate enlargement of left ventricle cavity. Severe global left ventricular systolic dysfunction. Ejection fraction is visually estimated at 30-35 %. Tissue Doppler/Mitral Doppler indices are consistent with pseudonormalization with mildly elevated left atrial pressure (Stage II diastolic dysfunction). MitraClip device attached to mitral valve leaflets, likely causing some degree of stenosis. Mild mitral annular calcification. Moderate mitral valve regurgitation. There is mild to moderate tricuspid regurgitation. There is severe enlargement of left atrium.There is mild-moderate enlargement of right atrium. Right ventricular systolic pressure is consistent with moderate pulmonary hypertension. The estimated Peak RVSP is 60 mmHg based on RA pressure of 8 mmHg. Electronically Signed By: Braxton Pollack 2019-04-07 14:45:44 PDT 04/07/2019: Brain CT: IMPRESSION: Atrophy. White matter disease compatible with chronic small vessel ischemia. No intracranial hemorrhage, mass or evidence of acute transcortical infarct. Hospital Course 68 yo m W/ hx IVDU,cm,dm2,dlp,ckd,htn, chronic systolic congestive heart failure, dilated cardiomyopathy, severe mitral regurgitation with status post mitral clip in 2017, peripheral arterial disease, CVA,here from SNF /2 ALOC, found to have coccaine detected in his urine,and paroxysmal A-Fib.. Patient's mentation was back to normal with Narcan. CT brain excluded any possible acute intracranial events. She was continued on home medication for underlying comorbidities. Patient's U tox was positive for cocaine as such, we did not continue him on Coreg. Patient also was noted in paroxysmal atrial fibrillation for which he was seen by our security system sales consultant. Patient was started on Eliquis twice daily. He was converted to normal sinus rhythm. As such, no further Cardizem for rate control was needed. Again, patient is not a candidate for beta-pro secondary to his cocaine abuse. At this time, patient is back to normal mental status. He has been tolerating diet and activities. He is very eager to be discharged back to his detention. Patient will be discharged to detention with addition of anticoagulation. Patient to follow-up with primary care physician and security system sales consultant on discharge. Proximately 60 m spent on this discharge. Patient was seen in collaboration with Dr. Salgado [facility] Reported Medications Tamsulosin Hcl* (Flomax*) 0.4 Mg Cap.er.24h, 0.4 MG PO QHS for 30 Days, #30 04/07/19 Trazodone Hcl* (Desyrel*) 50 Mg Tab, 50 MG PO QHS for 30 Days, #30 04/07/19 Pantoprazole* (Pantoprazole*) 40 Mg Tablet.dr, 40 MG PO DAILY for 30 Days, #30 04/07/19 Calcitriol* (Calcitriol*) 0.5 Mcg Capsule, 0.5 MG PO DAILY for 30 Days, #30 04/07/19 Hydralazine Hcl* (Hydralazine Hcl*) 25 Mg Tab, 25 MG PO DAILY for 30 Days, #30 04/07/19 Levetiracetam* (Levetiracetam*) 500 Mg Tablet, 500 MG PO DAILY for 30 Days, #30 04/07/19 Alprazolam* (Alprazolam*) 1 Mg Tablet, 1 MG PO QHS for 30 Days, #30 04/07/19 Atorvastatin* (Atorvastatin*) 40 Mg Tablet, 40 MG PO QHS, #30 TAB 05/08/18 Sitagliptin* (Januvia*) 100 Mg Tablet, 100 MG PO DAILY 01/18/14 Docusate Sodium* (Colace*) 250 Mg Capsule, 250 MG PO DAILY 01/18/14 Furosemide* (Lasix*) 40 Mg Tablet, 40 MG PO DAILY 01/18/14 Hydralazine Hcl* (Hydralazine Hcl*) 50 Mg Tab, 50 MG PO BID 01/18/14 Isosorbide Mononitrate* (Imdur*) 120 Mg Tab.sr.24h, 120 MG PO DAILY 01/18/14 Carvedilol* (Carvedilol*) 25 Mg Tablet, 25 MG PO BID 01/18/14 Aspirin (Aspirin) 81 Mg Chew, 81 MG PO DAILY 01/18/14 Follow-up Plan Follow-up with primary care physician in 1 week. Primary Care Provider Not On Staff Doctor Pending Labs Laboratory Tests Test 04/07/19 16:32 04/07/19 21:22 04/08/19 05:38 04/08/19 07:41 Bedside 87 128 128 Glucose mg/dL (70-220) mg/dL (70-220) mg/dL (70-220) White Blood 2.7 Count 10^3/ul (4.8-1 0.8) Red Blood 3.04 Count 10^6/ul (4.70- 6.10) Hemoglobin 9.1 g/dl (14.0-18. 0) Hematocrit 31.9 % (42.0-52.0) Mean 104.9 Corpuscular fl (82.0-101.0 Volume ) Mean 29.9 Corpuscular pg (29.0-33.0) Hemoglobin Mean 28.5 Corpuscular g/dl (32.0-37. Hemoglobin Conc 0) ent Red Cell 16.4 Distribution % (11.5-14.5) Width Platelet Count 87 10^3/UL (140-4 15) Mean Platelet 12.6 Volume fl (7.4-10.4) Immature 0.400 Granulocytes % % (0.001-0.429 ) Neutrophils % 59.5 % (39.0-77.0) Lymphocytes % 18.6 % (15.0-51.0) Monocytes % 15.7 % (0.0-11.0) Eosinophils % 5.1 % (0.0-7.0) Basophils % 0.7 % (0.0-2.0) Nucleated Red 0.0 Blood Cells % /100WBC (0.0-0 .0) Immature 0.010 Granulocytes # 10^3/ul (0.0-0 .031) Neutrophils # 1.6 10^3/ul (1.6-7 .5) Lymphocytes # 0.5 10^3/ul (0.8-2 .9) Monocytes # 0.4 10^3/ul (0.3-0 .9) Eosinophils # 0.1 10^3/ul (0.0-0 .5) Basophils # 0.0 10^3/ul (0.0-0 .1) Nucleated Red 0.0 Blood Cells # 10^3/ul (0.0-0 .0) Sodium Level 140 mmol/L (135-14 4) Potassium 4.4 Level mmol/L (3.5-5. 1) Chloride Level 105 mmol/L (97-110 ) Carbon Dioxide 28 Level mmol/L (21-31) Anion Gap 7 (5-13) Blood Urea 38 Nitrogen mg/dl (7-20) Creatinine 1.76 mg/dl (0.61-1. 24) Est Glomerular 47 Filtrat mL/min (>60) Rate mL/min Glucose Level 122 mg/dl (70-220) Calcium Level 8.8 mg/dl (8.4-10. 2) Test 04/08/19 11:23 Bedside 144 Glucose mg/dL (70-220) JOSIE HOLBROOK NP Apr 08, 2019 11:59
--- NOTE | 2019-04-08 16:58 | CONS ---
Assessment/Plan Assessment/Plan Hospital Course (Demo Recall) Encephalopathy: Due to polysubstance abuse. Resolved with narcan so predominantly opiate effect. Also with cocaine in [place] Paroxysmal afib/flutter on Eliquis: now back in sinus Dilated cardiomyopathy: probably from polysubstance abuse, EF 30% Chronic systolic CHF: ~compensated Severe MR s/p mitraclip 11/2016 at [facility]: residual moderate regurgitation on echo which is not unusual PAD with occluded left carotid per pt CVA without residual CKD -Eliquis 5mg BID -agree with holding coreg with recent cocaine use -continue imdur/hydralazine -dispo per primary. Ok for d/c from cardiac perspective Consultation Date/Type/Reason Admit Date/Time Apr 06, 2019 at 22:44 Initial Consult Date 04/07/19 Type of Consult Cardiology Requesting Provider: JOSIE HOLBROOK NP Date/Time of Note DATE: 04/08/19 TIME: 16:57 24 HR Interval Summary Free Text/Dictation No events. Plan for d.c back to SNF today Exam/Review of Systems Vital Signs Vitals Vital Signs Date Temp Pulse Resp B/P (MAP) Pulse Ox O2 O2 Flow FiO2 Time Delivery Rate 04/08/19 64 16:01 04/08/19 98.1 19 109/54 100 15:10 (72) 04/08/19 2.0 14:52 04/08/19 Nasal 08:00 Cannula Intake and Output 04/07/19 04/07/19 04/08/19 1515:00 23:00 07:00 IntakeIntake Total 950 ml 860 ml OutputOutput Total 400 ml 1500 ml BalanceBalance -400 ml -550 ml 860 ml Exam Constitutional: alert, oriented Psych: no complaints, nl mood/affect Neck: jvd (8cm) Respiratory: diminished breath sounds; No clear to auscultation Cardiovascular: regular rate and rhythm, systolic murmur (2/6 MADELEINE); No edema Gastrointestinal: soft, non-tender; No distended Neurological: nl mental status, nl speech Labs Result Diagram: 04/08/19 0538 04/08/19 0538 Results 24hrs Laboratory Tests Test 04/07/19 21:22 04/08/19 05:38 04/08/19 07:41 04/08/19 11:23 Bedside Glucose 128 128 144 White Blood Count 2.7 L Red Blood Count 3.04 L Hemoglobin 9.1 L Hematocrit 31.9 L Mean Corpuscular Volume 104.9 H Mean Corpuscular 29.9 Hemoglobin Mean Corpuscular 28.5 L Hemoglobin Concent Red Cell Distribution 16.4 H Width Platelet Count 87 L Mean Platelet Volume 12.6 H Immature Granulocytes % 0.400 Neutrophils % 59.5 Lymphocytes % 18.6 Monocytes % 15.7 H Eosinophils % 5.1 Basophils % 0.7 Nucleated Red Blood 0.0 Cells % Immature Granulocytes # 0.010 Neutrophils # 1.6 Lymphocytes # 0.5 L Monocytes # 0.4 Eosinophils # 0.1 Basophils # 0.0 Nucleated Red Blood 0.0 Cells # Sodium Level 140 Potassium Level 4.4 Chloride Level 105 Carbon Dioxide Level 28 Anion Gap 7 Blood Urea Nitrogen 38 H Creatinine 1.76 H Est Glomerular Filtrat 47 L Rate mL/min Glucose Level 122 Calcium Level 8.8 Medications Medications Current Medications IV Flush (NS 3 ml) 3 ml PER PROTOCOL IV ; Start 04/06/19 at 23:30 Ondansetron HCl (Zofran Inj) 4 mg Q6H PRN IV NAUSEA/VOMITING; Start 04/06/19 at 23:30 Acetaminophen (Tylenol Tab) 650 mg Q6H PRN PO .PAIN 1-3 OR TEMP Last administered on 04/08/19at 05:09; Admin Dose 650 MG; Start 04/06/19 at 23:30 Acetaminophen/ Hydrocodone Bitart ([place] (5/325)) 1 tab Q6H PRN PO .MOD PAIN 4-6; Start 04/06/19 at 23:30 Morphine Sulfate (morphine) 2 mg Q4H PRN IV .SEVERE PAIN 7-10; Start 04/06/19 at 23:30 Docusate Sodium (Colace) 100 mg Q12H PRN PO .CONSTIPATION; Start 04/06/19 at 23:30 Magnesium Hydroxide (Milk Of Mag) 30 ml DAILY PRN PO .CONSTIPATION; Start 04/06/19 at 23:30 Lorazepam (Ativan) 0.5 mg Q6H PRN IV ANXIETY; Start 04/06/19 at 23:30 Albuterol/ Ipratropium (Duoneb) 3 ml Q4H RESP THERAPY PRN HHN SHORTNESS OF BREATH; Start 04/06/19 at 23:30 Levofloxacin/ Dextrose 150 ml @ 100 mls/hr Q48H IVPB Last administered on 04/07/19at 05:08; Admin Dose 100 MLS/HR; Start 04/07/19 at 06:00 Hydralazine HCl (Apresoline) 10 mg Q6H PRN IV ELEVATED BLOOD PRESSURE; Start 04/06/19 at 23:30 Nitroglycerin (Nitroglycerin (Sl Tab) 0.4 Mg) 1 tab Q5M PRN SL ANGINA; Start 04/06/19 at 23:30 Atorvastatin Calcium (Lipitor) 40 mg QHS PO Last administered on 04/07/19at 21:19; Admin Dose 40 MG; Start 04/07/19 at 21:00 Docusate Sodium (Colace) 250 mg DAILY PO Last administered on 04/08/19at 07:42; Admin Dose 250 MG; Start 04/07/19 at 09:00 Furosemide (Lasix) 40 mg DAILY PO Last administered on 04/08/19at 07:42; Admin Dose 40 MG; Start 04/07/19 at 09:00 Hydralazine HCl (Apresoline) 50 mg BID PO Last administered on 04/08/19at 07:42; Admin Dose 50 MG; Start 04/07/19 at 09:00 Isosorbide Mononitrate (Imdur) 120 mg DAILY PO Last administered on 04/08/19at 07:42; Admin Dose 120 MG; Start 04/07/19 at 09:00 Miscellaneous Information 1 ea NOTE XX ; Start 04/07/19 at 01:00 Glucose (Glutose) 15 gm Q15M PRN PO DECREASED GLUCOSE; Start 04/07/19 at 01:00 Glucose (Glutose) 22.5 gm Q15M PRN PO DECREASED GLUCOSE; Start 04/07/19 at 01:00 Dextrose (D50w Syringe) 25 ml Q15M PRN IV DECREASED GLUCOSE; Start 04/07/19 at 0 1:00 Dextrose (D50w Syringe) 50 ml Q15M PRN IV DECREASED GLUCOSE; Start 04/07/19 at 01:00 Glucagon (Glucagen) 1 mg Q15M PRN IM DECREASED GLUCOSE; Start 04/07/19 at 01:00 Glucose (Glutose) 15 gm Q15M PRN BUCCAL DECREASED GLUCOSE; Start 04/07/19 at 01:00 Insulin Aspart (Novolog Insulin Pen) NOVOLOG *MILD* ALGORI... AC MEALS AND BEDTIME SC Last administered on 04/08/19at 11:31; Admin Dose 1 UNIT; Start 04/07/19 at 11:30 Apixaban (Eliquis) 5 mg BID PO Last administered on 04/08/19at 07:41; Admin Dose 5 MG; Start 04/07/19 at 21:00 DENISE NASH Apr 08, 2019 16:57
== END 2019-04-08 17:01 | DRG 917 ==
LOC: E/R 18:44 → 6WM 22:44
PROVIDERS: ADMIT Hospitalist; ATTEND Hospitalist
DX: T40.2X1A Poisoning by other opioids, accidental (unintentional), initial encounter (principal); G92 Toxic encephalopathy; N39.0 Urinary tract infection, site not specified; I48.92 Unspecified atrial flutter; I42.9 Cardiomyopathy, unspecified; D61.818 Other pancytopenia; I50.22 Chronic systolic (congestive) heart failure; I13.0 Hypertensive heart and chronic kidney disease with heart failure and stage 1 through stage 4 chronic kidney disease, or unspecified chronic kidney disease; E11.8 Type 2 diabetes mellitus with unspecified complications; I48.91 Unspecified atrial fibrillation; J44.9 Chronic obstructive pulmonary disease, unspecified; F14.90 Cocaine use, unspecified, uncomplicated; Z79.4 Long term (current) use of insulin; E78.5 Hyperlipidemia, unspecified; I25.10 Atherosclerotic heart disease of native coronary artery without angina pectoris; N18.9 Chronic kidney disease, unspecified; F17.200 Nicotine dependence, unspecified, uncomplicated; I73.9 Peripheral vascular disease, unspecified; E86.0 Dehydration
CPT/HCPCS: 36600; 70450; 71045; 80048; 80053; 80061; 80307; 81001; 82607; 82728; 82746; 82803; 82962; 83036; 83540; 83735; 84100; 84439; 84443; 84484; 85025; 87081; 87086; 92610; 93005; 93306; 97162; 97166; J0696; J1644; J1815; J1956; J7040